=== PATIENT | male | born 1975 | race Caucasian/White ===

== ENCOUNTER → 2020-05-06 18:32 | Outpatient (CLI) | payer OTHER, SELFPAY ==
[2020-05-06 15:15] VITALS: BMI 19.8
== END ==
PROVIDERS: PCP Nurse Practitioner; Referring Provider Nurse Practitioner; Visit Provider Nurse Practitioner
DX: R09.89 Other specified symptoms and signs involving the circulatory and respiratory systems (principal)
CPT/HCPCS: 87635; C9803; U0003

== ENCOUNTER → 2023-02-26 | Outpatient (CLI) | payer BC, SELFPAY ==
[2023-02-26 21:55] LABS: PSA,Total- Diagnostic 1.38 ng/mL (0.0-4.0); Thyroid Stim Hormone (TSH) 3.48 uIU/mL (0.358-3.74)
[2023-03-01 05:07] LABS: HEPATITIS B SURFACE AG Negative (Negative); Hepatitis A AB, Total Negative (Negative); Hepatitis B Core Ab Total Negative (Negative)
== END | disposition home or self-care (01) ==
PROVIDERS: PCP Nurse Practitioner; Visit Provider Nurse Practitioner
DX: R35.0 Frequency of micturition (principal); R16.0 Hepatomegaly, not elsewhere classified; K57.32 Diverticulitis of large intestine without perforation or abscess without bleeding
CPT/HCPCS: 84153; 84443; 86704; 86705; 86706; 86707; 86708; 86709; 87086; 87340; 87350